=== PATIENT | male | born 1995 | race Caucasian/White ===

== ENCOUNTER 2021-07-19 03:00 | Emergency (ER) | payer BC ==
[~2021-07-19] VITALS: Ht 182.9 cm; Wt 104.3 kg
[~2021-07-19 03:00] MED LIST: AMOXICILLIN875 MG PO; ANAPROX DS550 MG PO; CIPROFLOXACIN500 M1 PO; IBUPROFEN 200200 M1; NOHOMEMEDICATIONS; NORCO 5-325 TA1 EACH PO; ORPHENADRINE C100 M2 PO
[2021-07-19] MEDS ORDERED: GENTAK5 ML TOP (04:21)
[2021-07-19 04:45] VITALS: BP 158/100
== END 2021-07-19 04:45 | disposition home or self-care (01) ==
LOC: M.ERS 03:00
DX: S05.02XA Injury of conjunctiva and corneal abrasion without foreign body, left eye, initial encounter (principal); J45.909 Unspecified asthma, uncomplicated; X58.XXXA Exposure to other specified factors, initial encounter; Y93.89 Activity, other specified; Y92.89 Other specified places as the place of occurrence of the external cause; Y99.8 Other external cause status